=== PATIENT | female | born 1965 ===

== ENCOUNTER 2016-07-26 15:52 | Emergency (ER) | payer SELFPAY ==
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
== END 2016-07-26 17:15 | disposition home or self-care (01) ==
LOC: ER 15:52
DX: Z77.29 Contact with and (suspected) exposure to other hazardous substances (principal); F41.9 Anxiety disorder, unspecified; Z90.710 Acquired absence of both cervix and uterus; Z90.49 Acquired absence of other specified parts of digestive tract; Z79.82 Long term (current) use of aspirin

== ENCOUNTER 2016-08-02 09:45 | Emergency (ER) | payer SELFPAY ==
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
== END 2016-08-02 12:05 | disposition home or self-care (01) ==
LOC: ER 09:45
DX: M75.31 Calcific tendinitis of right shoulder (principal); J45.909 Unspecified asthma, uncomplicated; Z90.710 Acquired absence of both cervix and uterus; Z98.890 Other specified postprocedural states